=== PATIENT | female | born 1985 | race Caucasian/White ===

== ENCOUNTER 2018-10-30 13:17 | Emergency (ER) | payer OTHER ==
[~2018-10-30] VITALS: Ht 172.7 cm; Wt 59.0 kg
[2018-10-30 13:35] VITALS: BP 119/87
--- NOTE | 2018-10-30 14:02 | PHYS DOC ---
Adult General Chief Complaint Chief Complaint: HEMORRHOIDS HPI HPI 32-year-old female presents with anal pain. The patient has a history of external hemorrhoids. She believes she has had one that has been developing for last few days. Normally she uses topical therapy and "waits it out". This time, she is having much more pain than she has had in the past. She is not sure if she can continue to tolerate this pain. She has been taking Tylenol and ibuprofen. She has not been having any rectal bleeding. She has no other complaints. Review of Systems Review of Systems Constitutional: Denies fever or chills [] Eyes: Denies change in visual acuity, redness, or eye pain [] HENT: Denies nasal congestion or sore throat [] Respiratory: Denies cough or shortness of breath [] Cardiovascular: No additional information not addressed in HPI [] GI: Denies abdominal pain, nausea, vomiting, bloody stools or diarrhea [] : Anal pain[] Musculoskeletal: Denies back pain or joint pain [] Integument: Denies rash or skin lesions [] Neurologic: Denies headache, focal weakness or sensory changes [] Endocrine: Denies polyuria or polydipsia [] All other systems were reviewed and found to be within normal limits, except as documented in this note. Allergies Allergies Allergies Coded Allergies Type Severity Reaction Last Updated Verified No Known Drug Allergies 10/30/18 No Physical Exam Physical Exam Constitutional: Well developed, well nourished, no acute distress, non-toxic appearance. [] HENT: Normocephalic, atraumatic, bilateral external ears normal, oropharynx moist, no oral exudates, nose normal. [] Eyes: PERRLA, EOMI, conjunctiva normal, no discharge. [] Neck: Normal range of motion, no tenderness, supple, no stridor. [] Cardiovascular:Heart rate regular rhythm, no murmur [] Lungs & Thorax: Bilateral breath sounds clear to auscultation [] Abdomen: Bowel sounds normal, soft, no tenderness, no masses, no pulsatile masses. [] Skin: Warm, dry, no erythema, no rash. [] Back: No tenderness, no CVA tenderness. [] Extremities: No tenderness, no cyanosis, no clubbing, ROM intact, no edema. [] Neurologic: Alert and oriented X 3, normal motor function, normal sensory function, no focal deficits noted. [] Psychologic: Affect normal, judgement normal, mood normal. Rectal: Patient has a palpable external and centimeter by 3 cm hemorrhoid on the left side of the anus with firm center. No palpable internal hemorrhoids.[] EKG EKG [] Radiology/Procedures Radiology/Procedures [] Course & Med Decision Making Course & Med Decision Making Pertinent Labs and Imaging studies reviewed. (See chart for details) The patient external hemorrhoid. We discussed options for treatment and she has elected for surgical incision and possibly excision. I performed the procedure as outlined below. The patient tolerated it well. She had relief. She will follow up with her PCP and get a referral to a surgeon in case she has recurrence or needs their services in the future. No antibiotics will be given at this time. The patient and her pain resumed prior to discharge. I performed a second excision of the area. She was given one [place] 5/325 in the ED. I will discharge her on the same prescription. I have strongly advised that she follow- up with a general surgeon in case this does not completely resolve her situation , or if future hemorrhoids develop. The patient had a partially thrombosed external hemorrhoid. She presented within 72 hours of initial pain. The the area was prepped with iodine swabs. 2% lidocaine with epinephrine was used a total of 2 mL. After good anesthesia was achieved, a 1.5 cm incision was made in the hemorrhoid. Clot material was removed manually with Karrie's. The area was significantly softened. The total lesion was 1 cm x 4 cm in size and I did not feel comfortable excising the entire area. The wound was left open. Clean gauze was placed in the area. There were no complications. The patient tolerated the procedure well. She had immediately relief of her pain. Prior to the patient being discharged, she had resumption of her pain. Repeat exam showed that the tissue around the incision is still built pressure. Area was prepped with iodine swabs. I went in a second time with 2% lidocaine mixed with benzocaine, a total of 4 mL. After the area was anesthetized, I excised a 1.5 cm x 1.5 cm area of bluish skin that was firm. Some further exploration of the wound found a couple other small areas of clot deeper in the area. I excised these as well. The remaining skin was loosely approximated with 2 3-0 Vicryl sutures. There was minimal site bleeding. The patient again had relief of her pain. [] Dragon Disclaimer Dragon Disclaimer This electronic medical record was generated, in whole or in part, using a voice recognition dictation system. Departure Departure: Impression: Primary Impression: External hemorrhoid, thrombosed Disposition: HOME, SELF-CARE Condition: IMPROVED Referrals: RUDDY ESPINOSA (PCP) Patient Instructions: Hemorrhoids, [id number] Scripts Lidocaine/Prilocaine (LIDOCAINE-PRILOCAINE CREAM) 30 Gm Cream..g. 1 LORRAINE TP QID PRN for PAIN for 7 Days, #30 GM 1 Refill Prov: GEOFF AVENDAÑO DO 10/30/18 Hydrocodone Bit/Acetaminophen ([place] 5-325 TABLET) 1 Each Tablet 1-2 TAB PO PRN Q6HRS PRN for PAIN, #20 TAB 0 Refills Prov: GEOFF AVENDAÑO DO 10/30/18 GEOFF AVENDAÑO DO Oct 30, 2018 14:02
[2018-10-30] MEDS ORDERED: LIDOCAINE 2%/EPI 1:100,000 20 ML VIAL. ONE (14:17)
[2018-10-30] MEDS ORDERED: BUPIVACAINE PF 0.75% 10 ML VIAL ONE (14:17)
[2018-10-30] MEDS ORDERED: LIDOCAINE 2% JELLY 10ML IN APPLICATOR. ONE (15:40)
[2018-10-30] MEDS ORDERED: LIDOCAINE 2% JELLY 10ML IN APPLICATOR. MM ONE (16:00)
[2018-10-30] MEDS ORDERED: HYDROcodone/APAP 5/325MG 1 TAB TABLET PO ONE (16:30)
[2018-10-30] MEDS ORDERED: HYDR-3165 PO (18:44)
[2018-10-30] MEDS ORDERED: LIDO30CR TP (18:50)
== END 2018-10-30 19:16 | disposition home or self-care (01) ==
LOC: ER 13:17
DX: K64.5 Perianal venous thrombosis (principal)
CPT/HCPCS: 46083; 99284